=== PATIENT | male | born 1995 | race Caucasian/White ===

== ENCOUNTER 2019-02-21 16:11 | Emergency (ER) | payer OTHER ==
[~2019-02-21] VITALS: Ht 180.3 cm; Wt 88.5 kg
[2019-02-21 18:06] LABS: URINE BILIRUBIN NEGATIVE (Negative); URINE BLOOD NEGATIVE (Negative); URINE CLARITY CLEAR; URINE COLOR YELLOW; URINE GLUCOSE-RANDOM* NEGATIVE (Negative); URINE KETONES NEGATIVE (Negative); URINE LEUKOCYTES-REFLEX NEGATIVE (Negative); URINE NITRITE-REFLEX NEGATIVE (Negative); URINE PROTEIN (DIPSTICK) NEGATIVE (Negative); URINE UROBILINOGEN 0.2 E.U./dl (0.2-1.0)
[2019-02-21] MEDS ORDERED: ULTRAM 50MG TAB50 MG PO (18:09)
[2019-02-21 18:26] VITALS: BP 121/84
== END 2019-02-21 18:26 | disposition home or self-care (01) ==
LOC: ER 16:11
PROVIDERS: Physician Assistant
DX: N45.1 Epididymitis (principal); M54.5 Low back pain

== ENCOUNTER 2019-05-17 10:12 | Emergency (ER) | payer OTHER ==
[~2019-05-17] VITALS: Ht 190.5 cm; Wt 90.7 kg
[~2019-05-17 10:12] MED LIST: ULTRAM 50MG TAB50 MG PO
[2019-05-17 10:14] VITALS: BP 139/89
== END 2019-05-17 11:00 | disposition home or self-care (01) ==
LOC: ER 10:12
DX: S20.212A Contusion of left front wall of thorax, initial encounter (principal); W22.8XXA Striking against or struck by other objects, initial encounter; Y93.72 Activity, wrestling; Y92.89 Other specified places as the place of occurrence of the external cause; Y99.8 Other external cause status

== ENCOUNTER 2021-10-19 13:38 | Emergency (ER) | payer OTHER ==
[~2021-10-19] VITALS: Ht 190.5 cm; Wt 86.2 kg
[2021-10-19] MEDS ORDERED: FLEXERIL PO (16:38)
[2021-10-19 16:56] VITALS: BP 119/78
== END 2021-10-19 16:57 | disposition home or self-care (01) ==
LOC: ER 13:38
DX: M54.59 Other low back pain (principal)